=== PATIENT | female | born 1990 | race Caucasian/White ===

== ENCOUNTER 2022-10-12 16:45 | Inpatient (IN) | payer BC ==
[2022-10-12] MEDS ORDERED: SODIUM CHLORIDE 100 ML IVPB ONE (18:28)
[2022-10-12] MEDS ORDERED: AMPICILLIN SODIUM 2 GM VIAL ONE (18:28)
[2022-10-12 18:55] VITALS: BMI 24.8
[2022-10-12 19:36] LABS: BASO % 0.3 % (0-2.0); EOS % 1.2 % (0-4.5); HEMATOCRIT 32.2 % (32.4-45.2); HEMOGLOBIN 10.6 GM/dL (10.7-15.3); LYMPH % 18.1 % (8-40); MCH 27.3 pg (25.7-33.7); MCHC 32.9 g/dl (32.0-36.0); MEAN CELL VOLUME 83.1 fl (80-96); MEAN PLT VOLUME 9.3 fl (7.5-11.1); MONO % 7.7 % (3.8-10.2); NEUT % 72.7 % (42.8-82.8); PLATELET COUNT 206 10^3/uL (134-434); RBC 3.88 M/mm3 (3.60-5.2); RDW 13.1 % (11.6-15.6); WHITE BLOOD COUNT 7.9 K/mm3 (4.0-10.0)
[2022-10-12 19:51] LABS: INR 0.94 (0.83-1.09); PROTHROMBIN TIME (PATIENT) 10.8 SEC (9.7-13.0)
[2022-10-12 19:54] LABS: ACTIVATED PTT 26.4 SECONDS (25.2-36.5)
[2022-10-12 19:55] LABS: CALCIUM 8.3 mg/dL (8.5-10.1)
[2022-10-12] MEDS ORDERED: DINOPROSTONE 10 MG VAGINAL SUPPOSITORY VG ONE (19:55)
[2022-10-12 19:56] LABS: BLOOD UREA NITROGEN 8.6 mg/dL (7-18)
[2022-10-12 19:59] LABS: CREATININE 0.6 mg/dL (0.55-1.3)
[2022-10-12] MEDS ORDERED: DEXTROSE 5%-LACTATED RINGERS 1,000 ML IV SCH ×2 (20:00)
[2022-10-13] MEDS ORDERED: BUTORPHANOL TARTRATE 2 MG/ML VIAL IVPB ONE (01:30)
[2022-10-13] MEDS ORDERED: PROMETHAZINE HCL 25 MG/1 ML VIAL IVPUSH ONE ×2 (01:30→06:45)
[2022-10-13] MEDS ORDERED: PROMETHAZINE HCL 25 MG/1 ML VIAL ONE ×2 (03:07→07:02)
[2022-10-13] MEDS ORDERED: BUTORPHANOL TARTRATE 2 MG/ML VIAL ONE ×2 (03:07→07:02)
[2022-10-13] MEDS ORDERED: BUTORPHANOL TARTRATE 2 MG/ML VIAL IVPUSH ONE (06:45)
[2022-10-13] MEDS ORDERED: FENTANYL/BUPIVACAINE/NS/PF - PCEA - 50 ML DISP.SYRIN EP ONE (09:49)
[2022-10-13] MEDS ORDERED: ELECTROLYTE-148 SOLN 1,000 ML IV SCH ×2 (09:50→10:50)
[2022-10-13] MEDS: FENTANYL/BUPIVACAINE/NS/PF - PCEA - 50 ML DISP.SYRIN EP SCH (10:20)
[2022-10-13] MEDS ORDERED: NALOXONE HCL 0.4 MG/ML VIAL IVPUSH PRN (12:38)
[2022-10-13] MEDS ORDERED: morphine SULFATE/PF 1 MG/2 ML (2cc Syringe - QUVA) ONE (13:30)
[2022-10-13] MEDS ORDERED: FENTANYL CITRATE/PF 50 MCG/ML VIAL ONE (13:30)
[2022-10-13] MEDS ORDERED: METHYLERGONOVINE MALEATE 0.2 MG/1 ML AMP IM PRN (13:34)
[2022-10-13] MEDS ORDERED: ACETAMINOPHEN 325 MG TABLET (FP) PO PRN (13:34)
[2022-10-13] MEDS ORDERED: OXYTOCIN 20 UNITS in 0.9% NS 20 UNIT/1,000 ML INFUS.BAG IV ONE (14:12)
[2022-10-13] MEDS ORDERED: MIDAZOLAM HCL 2 MG/2 ML SINGLE DOSE VIAL ONE (14:15)
[2022-10-13] MEDS: OXYTOCIN 20 UNITS in 0.9% NS 20 UNIT/1,000 ML INFUS.BAG IV SCH ×2 (14:45→21:00)
[2022-10-13] MEDS: IBUPROFEN 800 MG/8 ML IJ IVPB PRN (16:31)
[2022-10-13] MEDS ORDERED: ONDANSETRON 4 MG/2 ML VIAL IVPUSH PRN (21:31)
[2022-10-14] MEDS ORDERED: oxyCODONE HCL 5 MG TABLET PO PRN (01:34)
[2022-10-14] MEDS: IBUPROFEN 800 MG/8 ML IJ IVPB PRN (05:55)
[2022-10-14 08:56] LABS: BASO % 0.2 % (0-2.0); EOS % 0.6 % (0-4.5); HEMATOCRIT 28.4 % (32.4-45.2); HEMOGLOBIN 9.2 GM/dL (10.7-15.3); LYMPH % 11.7 % (8-40); MCHC 32.4 g/dl (32.0-36.0); MEAN CELL VOLUME 83.3 fl (80-96); MEAN PLT VOLUME 9.3 fl (7.5-11.1); MONO % 5.8 % (3.8-10.2); NEUT % 81.7 % (42.8-82.8); PLATELET COUNT 192 10^3/uL (134-434); RBC 3.41 M/mm3 (3.60-5.2); WHITE BLOOD COUNT 12.2 K/mm3 (4.0-10.0)
[2022-10-14] MEDS: PRENATAL VITAMINS W/ FOLIC ACID TABLET (FP) PO SCH (09:41)
[2022-10-14] MEDS: IBUPROFEN 600 MG TABLET (FP) PO PRN ×2 (13:00→18:08)
[2022-10-14] MEDS: SIMETHICONE 80 MG TAB.CHEW (FP) PO PRN ×2 (13:01→21:54)
[2022-10-14] MEDS ORDERED: BISACODYL 10 MG SUPP.RECT RC PRN (13:34)
[2022-10-14] MEDS: oxyCODONE HCL 5 MG TABLET PO PRN (21:54)
[2022-10-14] MEDS: SENNOSIDES/DOCUSATE COMBO (SENNA PLUS) TABLET (UD) PO PRN (21:54)
[2022-10-15] MEDS: SIMETHICONE 80 MG TAB.CHEW (FP) PO PRN ×3 (06:00→15:22)
[2022-10-15] MEDS: oxyCODONE HCL 5 MG TABLET PO PRN (06:01)
[2022-10-15] MEDS ORDERED: ACETAMINOPHEN 500 MG TABLET (FP) PO PRN (09:47)
[2022-10-15] MEDS: PRENATAL VITAMINS W/ FOLIC ACID TABLET (FP) PO SCH (10:58)
[2022-10-15] MEDS ORDERED: oxyCODONE HCL 5 MG TABLET PO PRN (13:23)
[2022-10-15] MEDS ORDERED: IBUPROFEN 800 MG/8 ML IJ IVPB PRN (13:23)
[2022-10-15] MEDS: ACETAMINOPHEN 500 MG TABLET (FP) PO SCH ×2 (15:19→20:56)
[2022-10-15 22:43] VITALS: PULSE 82
[2022-10-16] MEDS: ACETAMINOPHEN 500 MG TABLET (FP) PO SCH ×2 (01:19→08:53)
[2022-10-16] MEDS: SENNOSIDES/DOCUSATE COMBO (SENNA PLUS) TABLET (UD) PO PRN (01:19)
[2022-10-16] MEDS: PRENATAL VITAMINS W/ FOLIC ACID TABLET (FP) PO SCH (10:27)
[2022-10-16 12:27] VITALS: BP 107/71; RESP 18; TEMP 98.3
== END 2022-10-16 13:25 | disposition home or self-care (01) | DRG 788 ==
LOC: JDEL 16:45 → JLDR 18:15 → J3W 10-13 16:22
PROVIDERS: ADMIT Obstetrics & Gynecology; ATTEND Obstetrics & Gynecology
PROC: 10D00Z1 Extraction of Products of Conception, Low, Open Approach (ICD-10-PCS; principal; 2022-10-13)
DX: O48.0 Post-term pregnancy (principal); O76 Abnormality in fetal heart rate and rhythm complicating labor and delivery; O42.92 Full-term premature rupture of membranes, unspecified as to length of time between rupture and onset of labor; O69.81X0 Labor and delivery complicated by cord around neck, without compression, not applicable or unspecified; Z37.0 Single live birth; Z3A.40 40 weeks gestation of pregnancy
CPT/HCPCS: 36415; 80048; 85025; 85610; 85730; 86780; 86850; 86900; 86901; 88307-TC; C9803-CS; U0003; U0005